=== PATIENT | female | born 1995 | race Caucasian/White ===

== ENCOUNTER → 2016-12-30 | Outpatient (CLI) | payer BC ==
[~2016-12-30] MED LIST: BCPILLS PO; BECL1AER5 NAE; ESCI1TAB10 PO; LEVO75TA PO; OLOP0.6S NAE; VENL75CA73 PO
[2016-12-30 12:06] LABS: BASO % 0.7 %; BASO ABS # 0.04 K/uL (0-0.2); COMPLETE YES; EOS % 8.7 %; HEMATOCRIT 38.2 % (37-47); IG% 0.2 %; LYMPH % 26.1 %; LYMPH ABS # 1.47 K/uL (1.2-3.4); MEAN CELL VOLUME 89.7 fL (80-100); MEAN CORPUSCULAR HEMOGLOBIN 30.8 pg (25-34); MEAN CORPUSCULAR HGB CONC 34.3 g/dl (32-36); MEAN PLATELET VOLUME 11.8 fL (7.4-10.4); NEUT % 59.3 %; PLATELET COUNT 222 K/uL (130-400); RED BLOOD COUNT 4.26 M/uL (4.2-5.4); WHITE BLOOD COUNT 5.64 K/uL (4.8-10.8)
[2016-12-30 12:29] LABS: THYROID STIMULATING HORMONE 5.77 uIu/ml (0.300-4.500)
== END | disposition home or self-care (01) ==
LOC: C.LABPBG 09:42
PROVIDERS: ATTEND Internal Medicine
DX: Z00.00 Encounter for general adult medical examination without abnormal findings (principal); G43.909 Migraine, unspecified, not intractable, without status migrainosus; R63.4 Abnormal weight loss